=== PATIENT | female | born 1950 | race Caucasian/White ===

== ENCOUNTER 2020-04-14 10:44 | Emergency (ER) | payer BC, MEDICARE | END 2020-04-14 12:32 | disposition left against medical advice (07) | LOC: JP.ED 10:44 | DX: Z53.21 Procedure and treatment not carried out due to patient leaving prior to being seen by health care provider (principal) ==

== ENCOUNTER 2020-12-07 18:21 | Emergency (ER) | payer MEDICARE, OTHER ==
[2020-12-07] MEDS ORDERED: fentaNYL 100 MCG/2 ML SDV IM ONE (19:08)
--- NOTE | 2020-12-07 19:10 | EDM.PDOC ---
ED HPI GENERAL MEDICAL PROBLEM - General Chief Complaint: Lower Extremity Injury/Pain Stated Complaint: FALL CAUSING PAIN IN KNEE Time Seen by Provider: 12/07/20 19:05 Source of Information: Reports: Patient, Family, RN Notes Reviewed History Limitations: Reports: No Limitations - History of Present Illness INITIAL COMMENTS - FREE TEXT/NARRATIVE: 70-year-old female presents emergency department day complaint left lower extremity pain she injured herself stepping off the pontoon [place] the dock where she slipped and fell on her weight went onto the left lower extremity. She c annot stand cannot bear weight Left Leg Pain Score (Numeric/FACES): 7 - Related Data Allergies Allergy/AdvReac Type Severity Reaction Status Date / Time amoxicillin [From Augmentin] Allergy Diarrhea Verified 12/07/20 18:44 clavulanic acid Allergy Diarrhea Verified 12/07/20 18:44 [From Augmentin] Home Meds: Home Meds Cefdinir [Omnicef] 300 mg PO BID 12/07/20 [History] Citalopram [Citalopram HBr] 30 mg PO DAILY 12/07/20 [History] Levothyroxine 75 mcg PO ACBREAKFAST 12/07/20 [History] Liothyronine [Cytomel] 5 mcg PO DAILY 12/07/20 [History] Past Medical History HEENT History: Reports: Impaired Vision 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: Musculoskeletal History: Reports: Fracture Psychiatric History: Reports: Depression - Past Surgical History HEENT Surgical History: Reports: Tonsillectomy Musculoskeletal Surgical History: Reports: Other (See Below) Other Musculoskeletal Surgeries/Procedures:: wrist surgery Social & Family History - Tobacco Use Tobacco Use Status *Q: Never Tobacco User Review of Systems - Review of Systems Review Of Systems: See Below Musculoskeletal: Reports: Leg Pain Skin: Reports: Bruising ED EXAM, GENERAL - Physical Exam Exam: See Below Free Text/Narrative:: Mid lower extremity there is tenderness there there is no tenderness to palpation of the knee movement of the kneecap she will not tolerate light weight Exam Limited By: No Limitations General Appearance: Alert, WD/WN, No Apparent Distress Course - Vital Signs Last Recorded V/S: Last Vital Signs Temp 96.8 F L 12/07/20 18:49 Pulse 77 12/07/20 21:05 Resp 20 12/07/20 18:49 BP 137/71 06/05/21 21:05 Pulse Ox 98 12/07/20 21:05 - Orders/Labs/Meds Orders: Active Orders 24 hr Category Date Time Status DME for Discharge [COMM] Urgent Oth 12/07/20 22:31 Ordered Meds: Medications Discontinued Medications Generic Name Dose Route Start Last Admin Trade Name Marge PRN Reason Stop Dose Admin Fentanyl 50 mcg 12/07/20 19:08 12/07/20 19:44 Fentanyl 100 Mcg/2 Ml Sdv IM 12/07/20 19:09 50 mcg ONETIME ONE Administration Departure - Departure Time of Disposition: 22:35 Disposition: DC/Tfer to Acute Hospital 02 Condition: Fair Clinical Impression: Tibial plateau fracture, left Qualifiers: Encounter type: initial encounter Fracture type: closed Qualified Code(s): S82.142A - Displaced bicondylar fracture of left tibia, initial encounter for closed fracture - Discharge Information Instructions: Tibial Plateau Fracture Treated With ORIF Referrals: Suzanne Jacobs DO [Primary Care Provider] - Forms: ED Department Discharge Sepsis Event Note (ED) - Evaluation Sepsis Screening Result: No Definite Risk - Focused Exam Vital Signs: Vital Signs Temp Pulse Resp BP Pulse Ox 12/07/20 21:05 77 137/71 98 12/07/20 19:43 80 127/66 97 12/07/20 18:49 96.8 F L 81 20 147/72 H 98 - My Orders Last 24 Hours: My Active Orders 12/07/20 22:31 DME for Discharge [COMM] Urgent - Assessment/Plan Last 24 Hours: My Active Orders 12/07/20 22:31 DME for Discharge [COMM] Urgent Plan: Assessment Acuity = acute Site and laterality = tibial plateau fracture left Etiology = trauma falling on a dock from a pontoon Manifestations = pain Location of injury = Home Lab values = x-ray and CT scan describes a fracture Plan Call discussed case with [facility] orth[facility] at 2230 kindly accepted the patient in transfer will be transferred via private vehicle plan for surgical intervention she is placed in a long-leg splint This note was dictated using Finalta voice recognition software please call with any questions on syntax or grammar.
--- NOTE | 2020-12-07 19:52 | CRLCR ---
For Patients: As a result of the Century Cures Act, medical imaging exams and procedure reports are released immediately into your electronic medical record. You may view this report before your referring provider. If you have questions, please contact your health care provider. INDICATION: Pain after fall. TECHNIQUE: Two views. IMPRESSION: Reticular attenuation in the subcutaneous adipose over the ventral proximal tibia likely contusion. Thin lucency at the lateral tibial plateau at the inferior slope with lateral spine could be tibial plateau fracture. No incongruity appreciated. Fibula intact. Three views of the knee versus CT recommended for further characterization. Dictated by Kobe Steele MD @ 12/07/2020 7:50:[address] Kobe Steele @ Dec 07 2020 7:50PM
--- NOTE | 2020-12-07 21:40 | CRLCT ---
For Patients: As a result of the Century Cures Act, medical imaging exams and procedure reports are released immediately into your electronic medical record. You may view this report before your referring provider. If you have questions, please contact your health care provider. INDICATION: Pain after fall. Question of tibial plateau fracture. COMPARISON: Plain film same date. TECHNIQUE: Multidetector imaging centered on the knee with axial, coronal or and sagittal formats. FINDINGS: Slightly comminuted mildly depressed fracture through the anterior tibial plateau. The greatest degree of depression at 5 mm. Hairline linear nondisplaced fracture through the posterior margin. Central depressed defect is roughly 15 mm diameter (image 46 on the axial series). Hairline extension of the fracture inferiorly through the anterolateral metaphysis extending inferior from the joint roughly 2.8 cm. IMPRESSION: Slightly depressed slightly comminuted anterior tibial plateau fracture. Please note that all CT scans at this facility use dose modulation, iterative reconstruction, and/or weight-based dosing when appropriate to reduce radiation dose to as low as reasonably achievable. Dictated by Kobe Steele MD @ 12/07/2020 9:39:[address] Kobe Steele @ Dec 07 2020 9:39PM
[2020-12-07] MEDS ORDERED: HYDROmorphone 1 MG/ML Syringe IM ONE (22:55)
== END 2020-12-07 23:30 ==
LOC: JP.ED 18:21
DX: S82.142A Displaced bicondylar fracture of left tibia, initial encounter for closed fracture (principal); Z88.0 Allergy status to penicillin; Z88.1 Allergy status to other antibiotic agents; Z79.899 Other long term (current) drug therapy; W01.0XXA Fall on same level from slipping, tripping and stumbling without subsequent striking against object, initial encounter
CPT/HCPCS: 73590; 73700; 96372; 99284; J1170; J3010

== ENCOUNTER 2020-12-25 10:30 | Day surgery (SDC) | payer MEDICARE, OTHER ==
[2020-12-25] MEDS ORDERED: Acetaminophen/oxyCODONE 325-5 MG Tab PO STA (11:00)
[2020-12-25] MEDS ORDERED: Acetaminophen/HYDROcodone 325-10 MG Tab PO ONE (11:03)
--- NOTE | 2020-12-25 11:17 | EDM.PDOC ---
ED HPI GENERAL MEDICAL PROBLEM - General Chief Complaint: Upper Extremity Injury/Pain Stated Complaint: POSSIBLE BROKEN RT WRIST Time Seen by Provider: 12/25/20 11:00 Source of Information: Reports: Patient, Old Records, RN History Limitations: Reports: No Limitations - History of Present Illness INITIAL COMMENTS - FREE TEXT/NARRATIVE: 70 yo female fell with injury to her R wrist. Presents accompanied by her with pain and a visible deformity. Ate toast, juice, coffee, peanut butter at 0730h today. 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: Other (see below) (none) Right Wrist Pain Score (Numeric/FACES): 10 - Related Data Allergies Allergy/AdvReac Type Severity Reaction Status Date / Time amoxicillin [From Augmentin] Allergy Diarrhea Verified 12/25/20 10:48 clavulanic acid Allergy Diarrhea Verified 12/25/20 10:48 [From Augmentin] morphine Allergy Vomiting Verified 12/25/20 11:01 oxycodone Allergy Vomiting Verified 12/25/20 11:01 Home Meds: Home Meds Citalopram [Citalopram HBr] 30 mg PO DAILY 12/07/20 [History] Levothyroxine 75 mcg PO ACBREAKFAST 12/07/20 [History] Liothyronine [Cytomel] 5 mcg PO DAILY 12/07/20 [History] Aspirin [Halfprin] 81 mg PO DAILY 12/25/20 [History] Hydrocodone/Acetaminophen [Hydrocodon-Acetaminophn 10-325] 1 tab PO Q6H PRN 12/25/20 [History] Past Medical History HEENT History: Reports: Impaired Vision 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 right knee Social & Family History - Tobacco Use Tobacco Use Status *Q: Never Tobacco User Second Hand Smoke Exposure: No - Caffeine Use Caffeine Use: Reports: Coffee - Recreational Drug Use Recreational Drug Use: No Review of Systems - Review of Systems Review Of Systems: See Below Constitutional: Reports: No Symptoms Musculoskeletal: Reports: Joint Pain (R wrist) Skin: Reports: No Symptoms Neurological: Reports: Numbness (Of R finger tips) ED EXAM, GENERAL - Physical Exam Exam: See Below Exam Limited By: No Limitations General Appearance: Alert, WD/WN, No Apparent Distress Eye Exam: Bilateral Eye: Normal Inspection Ears: Normal External Exam, Normal Canal, Hearing Grossly Normal Ear Exam: Bilateral Ear: Auricle Normal, Canal Normal Nose: Normal Inspection, No Blood Throat/Mouth: Normal Inspection, Normal Lips, Normal Oropharynx, Normal Voice, N o Airway Compromise Head: Atraumatic, Normocephalic Neck: Normal Inspection Respiratory/Chest: No Respiratory Distress, Lungs Clear, Normal Breath Sounds, No Accessory Muscle Use Cardiovascular: Regular Rate, Rhythm, No Edema GI/Abdominal: Normal Bowel Sounds, Soft, Non-Tender, No Distention Extremities: Joint Swelling (R wrist with swelling and deformity. ), Limited Range of Motion (of R wrist due to pain), Other (R wrist visibly deformed. ). N o: Normal Inspection, Normal Range of Motion, Non-Tender, No Pedal Edema Neurological: Alert, Oriented, CN II-XII Intact, Normal Cognition, Other (some numbness of the fingers of the R hand. ) Psychiatric: Normal Affect, Normal Mood Skin Exam: Warm, Dry, Intact, Normal Color, No Rash Course - Vital Signs Text/Narrative:: Dr. Caceres called @ 1116h Last Recorded V/S: Last Vital Signs Temp 36.4 C 12/25/20 10:58 Pulse 85 12/25/20 10:58 Resp 14 12/25/20 10:58 BP 166/79 H 12/25/20 10:58 Pulse Ox 97 12/25/20 10:58 - Orders/Labs/Meds Orders: Active Orders 24 hr Category Date Time Status Verify Patient Consent Obtain [RC] ASDIRECTED Care 12/25/20 12:37 Active Fluoro Up To 1Hr [CR] Routine Exams 12/25/20 12:23 Ordered Sodium Chloride 0.9% [Normal Saline] 1,000 ml Med 12/25/20 11:30 Active IV ASDIRECTED ceFAZolin [Ancef 2 GM/50 ML] 2 gm Med 12/25/20 13:00 Active Premix Bag 1 bag IV ONETIME Medication Orders Sodium Chloride (Normal Saline) 1,000 mls @ 125 mls/hr IV ASDIRECTED JAYA Last Admin: 12/25/20 11:31 Dose: 125 mls/hr Documented by: RADHA Cefazolin Sodium/Dextrose 2 gm (/ Premix) 50 mls @ 100 mls/hr IV ONETIME ONE Stop: 12/25/20 13:29 Labs: Laboratory Tests 12/25/20 12/25/20 Range/Units 12:12 12:12 WBC 12.4 H (4.5-11.0) K/uL RBC 4.42 (3.30-5.50) M/uL Hgb 12.8 (12.0-15.0) g/dL Hct 38.6 (36.0-48.0) % MCV 87 (80-98) fL MCH 29 (27-31) pg MCHC 33 (32-36) % Plt Count 381 (150-400) K/uL Sodium 140 (140-148) mmol/L Potassium 4.4 (3.6-5.2) mmol/L Chloride 103 (100-108) mmol/L Carbon Dioxide 27 (21-32) mmol/L Anion Gap 10.2 (5.0-14.0) mmol/L BUN 17 (7-18) mg/dL Creatinine 0.7 (0.6-1.0) mg/dL Est Cr Clr Drug Dosing 70.01 mL/min Estimated GFR (MDRD) > 60 (>60) Glucose 108 H (74-106) mg/dL Calcium 9.2 (8.5-10.1) mg/dL Total Bilirubin 0.3 (0.2-1.0) mg/dL AST 25 (15-37) U/L ALT 38 (12-78) U/L Alkaline Phosphatase 97 (46-116) U/L Total Protein 6.9 (6.4-8.2) g/dL Albumin 3.6 (3.4-5.0) g/dL Globulin 3.3 (2.3-3.5) g/dL Albumin/Globulin Ratio 1.1 L (1.2-2.2) Meds: Medications Generic Name Dose Route Start Last Admin Trade Name Freq PRN Reason Stop Dose Admin Sodium Chloride 1,000 mls @ 125 mls/hr 12/25/20 11:30 12/25/20 11:31 Normal Saline IV 125 mls/hr ASDIRECTED JAYA Administration Cefazolin Sodium/Dextrose 2 gm 50 mls @ 100 mls/hr 12/25/20 13:00 / Premix IV 12/25/20 13:29 ONETIME ONE Discontinued Medications Generic Name Dose Route Start Last Admin Trade Name Marge PRN Reason Stop Dose Admin Hydrocodone Bitart/Acetaminophen 1 tab 12/25/20 11:03 12/25/20 11:05 Acetaminophen/Hydrocodone 325-10 Mg Tab PO 12/25/20 11:04 1 tab ONETIME ONE Administration Bupivacaine HCl Confirm 12/25/20 12:15 Bupivacaine 0.5% 50 Ml Mdv Administered 12/25/20 12:16 Dose 50 ml .ROUTE .STK-MED ONE Fentanyl Confirm 12/25/20 12:11 Fentanyl 100 Mcg/2 Ml Sdv Administered 12/25/20 12:12 Dose 100 mcg .ROUTE .STK-MED ONE Hydromorphone HCl 0.5 mg 12/25/20 11:20 12/25/20 11:38 Hydromorphone 0.5 Mg/0.5 Ml Syringe IVPUSH 12/25/20 11:21 0.5 mg ONETIME ONE Administration Cefazolin Sodium/Dextrose 50 mls @ 100 mls/hr 12/25/20 12:35 Ancef 2 Gm/50 Ml IV 12/25/20 13:04 ONETIME ONE Lidocaine HCl Confirm 12/25/20 12:11 Lidocaine 0.5% 50 Ml Sdv Administered 12/25/20 12:12 Dose 50 ml .ROUTE .STK-MED ONE Lidocaine HCl Confirm 12/25/20 12:53 Lidocaine 0.5% 50 Ml Sdv Administered 12/25/20 12:54 Dose 50 ml .ROUTE .STK-MED ONE Midazolam HCl Confirm 12/25/20 12:11 Midazolam 1 Mg/Ml 2 Ml Sdv Administered 12/25/20 12:12 Dose 2 mg .ROUTE .STK-MED ONE Ondansetron HCl 4 mg 12/25/20 11:20 12/25/20 11:32 Ondansetron 4 Mg/2 Ml Sdv IVPUSH 12/25/20 11:21 4 mg ONETIME ONE Administration Oxycodone/Acetaminophen 1 tab 12/25/20 11:00 12/25/20 11:06 Acetaminophen/Oxycodone 325-5 Mg Tab PO 12/25/20 11:01 Not Given ONETIME STA Propofol Confirm 12/25/20 12:11 Propofol 200 Mg/20 Ml Sdv Administered 12/25/20 12:12 Dose 200 mg .ROUTE .STK-MED ONE Propofol Confirm 12/25/20 13:10 Propofol 200 Mg/20 Ml Sdv Administered 12/25/20 13:11 Dose 200 mg .ROUTE .STK-MED ONE - Re-Assessments/Exams Free Text/Narrative Re-Assessment/Exam: 12/25/20 11:14 L wrist [id number] radius impacted/displaced fx + ulnar styloid Free Text/Narrative Re-Assessment/Exam: 12/25/20 13:15 Orthopedics here to see patient, will go to surgery directly from the ER and then home after surgery. Departure - Departure Time of Disposition: 13:00 Disposition: Still A Patient 30 Condition: Fair Clinical Impression: Colles' fracture of left radius Qualifiers: Encounter type: initial encounter Fracture type: closed Qualified Code(s): S52.532A - Colles' fracture of left radius, initial encounter for closed fracture - Discharge Information *PRESCRIPTION DRUG MONITORING PROGRAM REVIEWED*: Not Applicable *COPY OF PRESCRIPTION DRUG MONITORING REPORT IN PATIENT MARIELLE: Not Applicable Sepsis Event Note (ED) - Evaluation Sepsis Screening Result: No Definite Risk - Focused Exam Vital Signs: Vital Signs Temp Pulse Resp BP Pulse Ox 12/25/20 10:58 36.4 C 85 14 166/79 H 97 - My Orders Last 24 Hours: My Active Orders 12/25/20 11:30 Sodium Chloride 0.9% [Normal Saline] 1,000 ml IV ASDIRECTED 12/25/20 12:23 Fluoro Up To 1Hr [CR] Routine - Assessment/Plan Last 24 Hours: My Active Orders 12/25/20 11:30 Sodium Chloride 0.9% [Normal Saline] 1,000 ml IV ASDIRECTED 12/25/20 12:23 Fluoro Up To 1Hr [CR] Routine
[2020-12-25] MEDS ORDERED: Ondansetron 4 MG/2 ML SDV IVPUSH ONE (11:20)
[2020-12-25] MEDS ORDERED: HYDROmorphone 0.5 MG/0.5 ML Syringe IVPUSH ONE (11:20)
[2020-12-25] MEDS ORDERED: Sodium Chloride 0.9% 1,000 ML IV SCH (11:30)
[2020-12-25] MEDS ORDERED: fentaNYL 100 MCG/2 ML SDV ONE ×2 (12:11→13:20)
[2020-12-25] MEDS ORDERED: Midazolam 1 MG/ML 2 ML SDV ONE (12:11)
[2020-12-25] MEDS ORDERED: Lidocaine 0.5% 50 ML SDV ONE ×2 (12:11→12:53)
[2020-12-25] MEDS ORDERED: Propofol 200 MG/20 ML SDV ONE ×2 (12:11→13:10)
[2020-12-25] MEDS ORDERED: Bupivacaine 0.5% 50 ML MDV ONE (12:15)
--- NOTE | 2020-12-25 12:38 | CR ---
Wrist Comp Min 3V Rt CLINICAL HISTORY: Injury FINDINGS: There is a comminuted impacted distal radial fracture. There is dorsal angulation of the distal aspectThere. Is also fracture of the ulnar styloid. Impression: Fracture distal radius and ulnar styloid
[2020-12-25] MEDS ORDERED: ceFAZolin 2 GM in Premix Bag 1 BAG IV ONE (13:00)
[2020-12-25] MEDS ORDERED: Acetaminophen/HYDROcodone 325-5 MG Tab PO ONE (14:47)
--- NOTE | 2020-12-25 17:10 | PCM.SN.2 ---
- Free Text/Narrative Note: Patient has 3 tabs of 10mg-325mg [place] left from her Tibial Plateau fracture. Script provided for 1-week supply of 10mg-325mg [place], 1 tab PO q 6hrs prn for pain, dispense #24. Instructed patient and not to exceed 10mg hydrocodone every 6 hours. Patient and expressed understanding.
--- NOTE | 2020-12-30 21:36 | OR ---
DATE OF PROCEDURE: 12/25/2020 SURGEON: Frantz Caceres MD PREOPERATIVE DIAGNOSIS: Displaced right distal radius fracture. POSTOPERATIVE DIAGNOSIS: Displaced right distal radius fracture. PROCEDURE: Open reduction and internal fixation, right distal radius, using Synthes volar plate. FINISH PRODUCTION MANAGER: SHAREE Conte ANESTHESIA: Grant block with sedation. INDICATIONS: Tom is a 70-year-old female who unfortunately has recently sustained a left tibial plateau fracture. She has been wearing a knee immobilizer for this and got caught up today, stumbling, and fell to her right side onto her right wrist, sustaining significantly displaced distal radius fracture. 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 Risks, benefits, and potential complications were discussed. DESCRIPTION OF PROCEDURE: After adequate anesthesia was obtained, the patient was placed supine with a tourniquet about the upper arm. The arm was prepped and draped in a sterile fashion. A longitudinal incision was made in the volar aspect of the arm and carried across the wrist crease at approximately 45-degree angle towards the radial styloid. Median nerve was identified and protected throughout the case. Blunt dissection carried through the flexors down to the fracture site. Pronator quadratus was elevated off the fracture. Fracture was reduced. A Synthes variable angle volar plate was selected. This was secured to the shaft proximally with cortical screws with good purchase. Distal fixation was obtained with locking screws. Confirmation of reduction, position of the screws was done using C-arm fluoroscopy. Wound was irrigated. The skin was closed with 3-0 Vicryl in interrupted fashion followed by 3-0 Monocryl and Steri-Strips. The wound and the fracture were infiltrated with 0.5% Marcaine. A well-padded plaster volar splint was then applied. The patient tolerated the procedure very well. There were no complications. Taken from the operative room in stable condition. Frantz Caceres MD /[id number]
== END 2020-12-25 16:50 | disposition home or self-care (01) ==
LOC: JP.ED 10:30 → JP.SDS 12:23
PROVIDERS: ATTEND Specialist
DX: S52.551A Other extraarticular fracture of lower end of right radius, initial encounter for closed fracture (principal); Z88.1 Allergy status to other antibiotic agents; Z88.5 Allergy status to narcotic agent; Z88.8 Allergy status to other drugs, medicaments and biological substances; Z79.899 Other long term (current) drug therapy; Z79.82 Long term (current) use of aspirin; Z98.890 Other specified postprocedural states; W01.0XXA Fall on same level from slipping, tripping and stumbling without subsequent striking against object, initial encounter
CPT/HCPCS: 25607; 36415; 73110; 76000; 80053; 85027; 96365; 96375; 97116; 97161; 97535; 99284; A9270; C1713; J0690; J1170; J2250; J2405; J2704; J3010; J3490; J7030

== ENCOUNTER 2021-04-23 05:34 | Day surgery (SDC) | payer MEDICARE, OTHER ==
[2021-04-23] MEDS ORDERED: Nozin Nasal Sanitizer NASBOTH ONE (06:30)
[2021-04-23] MEDS ORDERED: Lactated Ringers 1,000 ML IV SCH (06:30)
[2021-04-23] MEDS ORDERED: Bupivacaine 0.5% 30 ML SDV ONE ×2 (06:41→07:20)
[2021-04-23] MEDS ORDERED: ceFAZolin 2 GM in Sodium Chloride 0.9% 50 ML IV ONE (07:00)
[2021-04-23] MEDS ORDERED: ceFAZolin 2 GM in Premix Bag 1 BAG IV ONE (07:00)
[2021-04-23] MEDS ORDERED: Propofol 200 MG/20 ML SDV ONE (07:16)
[2021-04-23] MEDS ORDERED: fentaNYL 100 MCG/2 ML SDV ONE (07:16)
[2021-04-23] MEDS ORDERED: Midazolam 1 MG/ML 2 ML SDV ONE (07:16)
[2021-04-23] MEDS ORDERED: Scopolamine 1.5 MG Transdermal Patch TOP SCH (08:00)
== END 2021-04-23 08:12 | disposition home or self-care (01) ==
LOC: JP.SDS 05:34
PROVIDERS: ATTEND Specialist
DX: M75.101 Unspecified rotator cuff tear or rupture of right shoulder, not specified as traumatic (principal); Z53.09 Procedure and treatment not carried out because of other contraindication; U07.1 COVID-19
CPT/HCPCS: 36415; 80048; 85027; A9270; J7120; U0002; J2250; J2704; J3010; J3490

== ENCOUNTER 2021-05-12 06:00 | Day surgery (SDC) | payer MEDICARE, OTHER ==
[2021-05-12] MEDS ORDERED: Lactated Ringers 1,000 ML IV SCH (07:00)
[2021-05-12] MEDS ORDERED: Scopolamine 1.5 MG Transdermal Patch TRDERM SCH (07:15)
[2021-05-12] MEDS ORDERED: Midazolam 1 MG/ML 2 ML SDV ONE (07:22)
[2021-05-12] MEDS ORDERED: Propofol 200 MG/20 ML SDV ONE ×3 (07:22→09:38)
[2021-05-12] MEDS ORDERED: fentaNYL 100 MCG/2 ML SDV ONE ×2 (07:22→08:48)
[2021-05-12] MEDS ORDERED: Bupivacaine 0.5% 30 ML SDV ONE (07:24)
[2021-05-12] MEDS ORDERED: Nozin Nasal Sanitizer NASBOTH SCH (07:30)
[2021-05-12] MEDS ORDERED: ceFAZolin 2 GM in Premix Bag 1 BAG IV ONE (07:30)
[2021-05-12] MEDS ORDERED: Acetaminophen/oxyCODONE 325-5 MG Tab PO PRN (10:52)
--- NOTE | 2021-05-12 22:40 | OR ---
DATE OF PROCEDURE: 05/12/2021 SURGEON: Frantz Caceres MD PREOPERATIVE DIAGNOSIS: Rotator cuff tear, right shoulder. POSTOPERATIVE DIAGNOSES: 1. Rotator cuff tear, right shoulder. 2. Rotator cuff tendinopathy. 3. Impingement, right shoulder. 4. Synovitis, right shoulder. 5. Early osteoarthritis with chondral defect, humeral head. PROCEDURES: Arthroscopy, right shoulder; with chondroplasty, humeral head; limited synovectomy, right shoulder; subacromial decompression with acromioplasty, right shoulder; and rotator cuff repair, right shoulder. 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 INDICATIONS: Tom is a very pleasant 70-year-old female, who sustained a fall a few months ago, resulting in persistent right shoulder pain. She has failed conservative treatment. Imaging and exam are consistent with a rotator cuff tear. She now presents for arthroscopic evaluation and repair. Risks, benefits, and potential complications of the procedure were discussed. child welfare assistant services of SHAREE Brooks, was utilized during the case for suture management and anchor implantation. PROCEDURE IN DETAIL: After adequate anesthesia was obtained, the patient was placed in a lateral decubitus position and secured with a ro bag positioner. Her right shoulder and arm were prepped and draped in a sterile fashion. 10 pounds of traction was placed in a shoulder traction unit. A standard posterior portal was established, and the scope was introduced. This revealed fairly significant synovitis throughout the shoulder, primarily in the anterior shoulder and the rotator cuff interval. Minor degenerative changes of the labrum were present. The articular surface of the glenoid was intact. The humeral head, however, had a somewhat irregularly shaped full-thickness defect of the articular cartilage, anterior central, measuring approximately 7 mm in length and 4.5 to 5 mm in width. Some mild delamination was noted along the anterior edge with a chondral flap. The biceps tendon showed some minor fraying as it entered the bicipital groove. The subscapularis was intact. The superior labrum was intact. The undersurface of the rotator cuff showed severe tendinopathy with a macerated partial-thickness tear. An anterior portal was established. A shaver was used to perform a chondroplasty in the humeral head, removing the chondral flap. Using a combination of the shaver and the radiofrequency ablation wand a limited synovectomy was performed, allowing better visualization of the subscapularis. A spinal needle was used to onur the location of the severe tendinopathy and apparent partial- thickness tear. A PDS suture was placed through this, and the needle was removed. The scope was then withdrawn from the joint and placed in the subacromial space. A lateral portal was established. Significant inflammation was present in the subacromial space as well. Evidence of ongoing impingement was noted with fraying of the coracoacromial ligament. The bursal surface of the rotator cuff showed significant tendinopathy with a small full-thickness tear running primarily longitudinally in line with the fibers of the tendon. Using a combination of the shaver and the ablation wand, the bursa was resected for better visualization. The soft tissues were removed from the undersurface of the acromion, which showed a significant anterolateral hook. A bur was introduced, and acromioplasty was performed, removing the anterolateral portion of the acromion and bevelling this medially and posteriorly. The rotator cuff was further evaluated and a shaver used to debride the macerated edges. Again, this was found to be primarily a longitudinal tear. The edges were approximated with an Orthocord suture placed in a mattress fashion through the posterior and anterior portions of the tear. This was then tied down in standard arthroscopic technique. The footprint of the tuberosity was debrided with a shaver and then lightly decorticated with a bur. A single Mitek anchor was placed. This had relatively poor purchase and was replaced by a 5.5 anchor, which had much improved purchase. One limb of each of the suture pairs was passed through the posterior edge of the tear and one through the anterior edge of the tear. This further closed the edges of the longitudinal tear and approximated it to the tuberosity. Sutures were then placed through a knotless anchor, which was secured into a tunnel just off the edge of the tuberosity. The arm was taken through range of motion and internal and external rotation with good stable fixation of the tear. Sutures were cut. The scope and cannulas were removed. Port sites were closed with 3-0 Monocryl in interrupted fashion. Steri-Strips were applied. A sterile dressing was placed. The patient tolerated the procedure well. There were no complications. Taken from the operating room in stable condition. Frantz Caceres MD /[id number] [place]
== END 2021-05-12 12:55 | disposition home or self-care (01) ==
LOC: JP.SDS 06:00
PROVIDERS: ATTEND Specialist
DX: M75.121 Complete rotator cuff tear or rupture of right shoulder, not specified as traumatic (principal); M19.011 Primary osteoarthritis, right shoulder; M25.811 Other specified joint disorders, right shoulder; M65.811 Other synovitis and tenosynovitis, right shoulder; Z88.1 Allergy status to other antibiotic agents; Z88.5 Allergy status to narcotic agent; Z88.8 Allergy status to other drugs, medicaments and biological substances
CPT/HCPCS: 29826; 29827; 36415; 80048; 85025; A9270; C1713; J0690; J2250; J2704; J3010; J3490; J7120